=== PATIENT | female | born 1975 | race Caucasian/White ===

== ENCOUNTER 2023-06-05 17:13 | Emergency (ER) | payer MEDICAID ==
[~2023-06-05] VITALS: Ht 167.6 cm; Wt 95.6 kg
[2023-06-05 17:55] LABS: BASOPHILS # (AUTO) 0.1 X10'3 (0-0.2); BASOPHILS % (AUTO) 1.1 % (0-1); EOSINOPHILS # (AUTO) 0.4 X10'3 (0-0.9); HEMATOCRIT 32.5 % (35.0-45.0); HEMOGLOBIN 9.9 g/dl (12.0-16.0); LYMPHOCYTES # (AUTO) 3.5 X10'3 (1.1-4.8); LYMPHOCYTES % (AUTO) 28.6 % (21-51); MEAN CORPUSCULAR HGB CONC 30.4 g/dL (33.0-36.5); MEAN CORPUSCULAR VOLUME 69.2 FL (78-98); MEAN PLATELET VOLUME 6.4 FL (7.4-10.4); MONOCYTES # (AUTO) 0.7 X10'3 (0-0.9); MONOCYTES % (AUTO) 6.1 % (2-12); NEUTROPHILS # (AUTO) 7.4 X10'3 (1.8-7.7); NEUTROPHILS % (AUTO) 61.2 % (42-75); PLATELET COUNT 537 X10'3 (140-440); RED CELL DISTRIBUTION WIDTH 19.4 % (11.5-14.5); WHITE BLOOD COUNT 12.1 X10'3 (4.5-11.0)
[2023-06-05 18:07] LABS: ALANINE AMINOTRANSFERASE 18 U/L (12-78); ALBUMIN 3.5 G/DL (3.4-5.0); ALBUMIN/GLOBULIN RATIO 0.9 (1.1-1.5); ALKALINE PHOSPHATASE 78 IU/L (46-116); ANION GAP 10 (8-16); ASPARTATE AMINO TRANSFERASE 13 U/L (10-37); BILIRUBIN,TOTAL 0.2 MG/DL (0.1-1.0); BLOOD UREA NITROGEN 9 MG/DL (7-18); BUN/CREATININE RATIO 12.3 (10.0-20.0); CALCIUM 9.2 MG/DL (8.5-10.1); CHLORIDE 104 MMOL/L (99-107); CREATININE 0.73 MG/DL (0.40-0.90); GLUCOSE 102 MG/DL (70-104); LIPASE 78 U/L (73-393); SODIUM 140 MMOL/L (135-145); TOTAL CARBON DIOXIDE 26.5 MMOL/L (24-32); TOTAL PROTEIN 7.4 G/DL (6.4-8.2); eGFR 85 ML/MIN
[2023-06-05 18:19] LABS: PLATELET ESTIMATE INCREASED
[2023-06-05 18:20] LABS: HYPOCHROMASIA 1+; LARGE PLATELETS FEW
[2023-06-05 18:21] LABS: ANISOCYTOSIS 2+; MICROCYTOSIS 2+; POIKILOCYTOSIS 1+
[2023-06-05 18:28] LABS: CLARITY,URINE SLIGHTLY CLOUDY (Clear); COLOR,URINE YELLOW (Yellow); GLUCOSE, URINE NEGATIVE (Neg); KETONES,URINE NEGATIVE (Neg); LEUKOCYTE ESTERASE ,URINE SMALL (Neg); NITRITES, URINE POSITIVE (Neg); OCCULT BLOOD,URINE SMALL (Neg); PH,URINE 5.5 (4.8-8.0); PROTEIN,URINE NEGATIVE (Neg); URINE HCG NEGATIVE (NEG); UROBILINOGEN,URINE 0.2 E.U/dL (0.2-1.0)
[2023-06-05 18:32] LABS: UA COLLECTION TYPE CLN CATCH MIDSTREAM
[2023-06-05 18:34] LABS: WBC,URINE 20-30 /HPF (0-4)
[2023-06-05 18:35] LABS: BACTERIA,URINE 1+ /HPF (Neg); SQUAMOUS EPITHELIAL CELL,UR FEW /LPF (FEW); WBC CLUMPS,URINE MODERATE /HPF (NEGATIVE)
[2023-06-05 20:56] VITALS: BP 142/81; PULSE 84; RESP 18; TEMP 98.6; O2SAT 98
[2023-06-05] MEDS ORDERED: cephalexin 500mg capsule PO ONE (21:50)
[2023-06-05] MEDS ORDERED: CEPH-585 PO (21:55)
== END 2023-06-05 22:59 | disposition home or self-care (01) ==
LOC: ER 17:15
DX: N39.0 Urinary tract infection, site not specified (principal); R11.2 Nausea with vomiting, unspecified; R19.7 Diarrhea, unspecified; R10.10 Upper abdominal pain, unspecified; Z79.2 Long term (current) use of antibiotics; Z88.8 Allergy status to other drugs, medicaments and biological substances; Z98.891 History of uterine scar from previous surgery
CPT/HCPCS: 36415; 74176; 80053; 81001; 81025; 83690; 85008; 85025; 87077; 87088; 87186; 99284

== ENCOUNTER 2023-08-15 19:09 | Emergency (ER) | payer MEDICAID ==
[~2023-08-15] VITALS: Ht 167.6 cm; Wt 96.4 kg
[~2023-08-15 19:09] MED LIST: CEPH-585 PO
[2023-08-15 19:23] VITALS: BP 158/78; PULSE 65; RESP 16; TEMP 99; O2SAT 99
[2023-08-15 19:57] LABS: BILIRUBIN,URINE NEGATIVE (Neg); COLOR,URINE STRAW (Yellow); GLUCOSE, URINE NEGATIVE (Neg); KETONES,URINE NEGATIVE (Neg); LEUKOCYTE ESTERASE ,URINE MODERATE (Neg); NITRITES, URINE NEGATIVE (Neg); OCCULT BLOOD,URINE SMALL (Neg); PROTEIN,URINE NEGATIVE (Neg); UROBILINOGEN,URINE 0.2 E.U/dL (0.2-1.0)
[2023-08-15 20:00] LABS: URINE HCG NEGATIVE (NEG)
[2023-08-15 20:09] LABS: CLARITY,URINE SLIGHTLY CLOUDY (Clear); UA COLLECTION TYPE CLN CATCH MIDSTREAM
[2023-08-15 20:11] LABS: BACTERIA,URINE 1+ /HPF (Neg); SQUAMOUS EPITHELIAL CELL,UR FEW /LPF (FEW)
[2023-08-15 20:12] LABS: MUCUS STRANDS MODERATE /LPF (Neg); TRANSITIONAL EPI CELLS,URINE FEW /HPF; TRICHOMONAS,URINE FEW /HPF (NEGATIVE); WBC CLUMPS,URINE FEW /HPF (NEGATIVE)
== END 2023-08-16 00:15 | disposition left against medical advice (07) ==
LOC: ER 19:10
DX: R10.9 Unspecified abdominal pain (principal); Z53.21 Procedure and treatment not carried out due to patient leaving prior to being seen by health care provider
CPT/HCPCS: 81001; 81025; 87088; 99281